=== PATIENT | female | born 1990 | race Caucasian/White ===

== ENCOUNTER 2018-09-19 21:46 | Emergency (ER) | payer OTHER ==
[2018-09-19] MEDS ORDERED: LIDOCAINE 1% INJ 10MG/ML (20 ML MDV) SQ ONE (22:36)
[2018-09-20] MEDS ORDERED: CEPHALEXIN 500 MG CAP PO STA (00:43)
[2018-09-20] MEDS ORDERED: SULFAMETHOX-TMP 800-160MG 1 EACH TAB PO STA (00:43)
[2018-09-20] MEDS ORDERED: IBUPROFEN 600 MG TAB PO STA (00:43)
--- NOTE | 2018-09-20 00:48 | ED ---
General Adult HPI - General Chief complaint: Skin/Abscess/Foreign Body Stated complaint: Boil on Buttox/[facility] Pt Time Seen by Provider: 09/19/18 21:55 Source: patient Mode of arrival: ambulatory Limitations: no limitations - History of Present Illness Initial comments: The patient is a 28-year-old female with past medical history of alcohol abuse who presents to the emergency room from [facility]. She states that over the past several days she has had a boil on her left buttock. She states that it started as a small pimple grew in size. She denies a history of abscess. The nurses at [facility] did place her on Bactrim. She is taking 1 tablet twice daily. She has taken 3 days worth of pills and has not had any improvement in her symptoms. She states she is getting a minimal amount of pustular drainage from the site. No history of MRSA in the past. She denies any changes in her bowel or bladder habits. The abscess does not extend to her rectal canal. She denies the possibility been . She is currently at [facility] for alcohol abuse. There are no other alleviating, precipitating or modifying factors - Related Data Home Medications Medication Instructions Recorded Confirmed Acamprosate Calcium [Campral] 333 mg PO TID 09/19/18 09/19/18 Acetaminophen Tab [Tylenol Tab] 650 mg PO Q4H PRN 09/19/18 09/19/18 Dicyclomine [Bentyl] 20 mg PO TID PRN 09/19/18 09/19/18 Gabapentin [Neurontin] 300 mg PO BID 09/19/18 09/19/18 Ibuprofen [Motrin] 800 mg PO TID PRN 09/19/18 09/19/18 LORazepam [Ativan] 1 mg PO TID PRN 09/19/18 09/19/18 Multivitamins, Thera [Multivitamin 1 tab PO DAILY 09/19/18 09/19/18 (formulary)] Omeprazole [PriLOSEC] 20 mg PO DAILY@1700 09/19/18 09/19/18 Sulfamethoxazole/Trimethoprim 1 tab PO BID 09/19/18 09/19/18 [Bactrim DS 800-160 mg] Previous Rx's Medication Instructions Recorded Cephalexin [Keflex] 500 mg PO Q6HR #40 cap 09/20/18 Sulfamethox-Tmp 800-160Mg [Bactrim 2 each PO Q12HR #28 tab 09/20/18 Ds] Allergies Allergy/AdvReac Type Severity Reaction Status Date / Time No Known Allergies Allergy Verified 09/19/18 22:36 Review of Systems ROS Statement: Those systems with pertinent positive or pertinent negative responses have been documented in the HPI. ROS Other: All systems not noted in ROS Statement are negative. Past Medical History Additional Past Medical History / Comment(s): PAncreatitis Past Surgical History: No Surgical Hx Reported Past Psychological History: Anxiety, Depression Smoking Status: Current every day smoker Past Alcohol Use History: Heavy Past Drug Use History: None Reported General Exam Limitations: no limitations General appearance: alert, in no apparent distress Respiratory exam: Present: normal lung sounds bilaterally Cardiovascular Exam: Present: regular rate, normal rhythm GI/Abdominal exam: Present: soft. Absent: tenderness, guarding, rebound, rigid Rectal exam: Present: normal inspection, other (there is a 4.0 x 3.0 cm abscess on the patients left buttock. Does not extend to rectal canal). Absent: hemo rrhoids, mass, tenderness Skin exam: Present: warm, dry, intact Course Vital Signs 09/19/18 09/20/18 21:50 00:58 Temperature 98.0 F 98.1 F Pulse Rate 91 77 Respiratory 17 18 Rate Blood Pressure 138/88 123/89 O2 Sat by Pulse 100 100 Oximetry Procedures - Incision & Drainage Consent Obtained: verbal consent Indication: abscess Site: buttock Size (cm): 4 (cm) Anesthetic Used: lidocaine 1% Amount (mLs): 10 (cc) I&D Cleaning Method: Chloroprep Sterile Field Used?: Yes Scalpel Used: #11 Needle Aspiration Performed?: No Irrigation Performed?: No I&D Drainage Obtained: Pus, Blood Packing: Iodoform Culture Obtained?: No Patient Tolerated Procedure: well, no complications Medical Decision Making - Medical Decision Making Upon arrival the patient was placed into room 7. I did discuss diagnosis, differential and treatment options. I did recommend I+D of the patient's abscess. Verbal consent was obtained. The procedure was performed and the patient tolerated it well. The abscess was packed. I did inform her that she should remove the packing within 24-48 hours. I did provide the patient with a dose of Bactrim and Keflex in the emergency room. I also gave her 600 mg of Motrin. The patient will be prescribed Keflex to be taken 4 times a day. I also increased the patient's Bactrim dose from 1 tablets to 2 tablets twice daily. The patient needs to have her wound reevaluated by the nursing staff at [facility]. If she has any new or worsening symptoms she is instructed to return to the emergency room as she may need IV antibiotics. The patient understood this. She received written and verbal discharge instructions was discharged in stable condition - Differential Diagnosis acute abscess, acute cellulitis Disposition Clinical Impression: Abscess of buttock Disposition: HOME SELF-CARE Condition: Stable Instructions (If sedation given, give patient instructions): Abscess Incision and Drainage (ED), Abscess (ED) Additional Instructions: Please follow-up with your doctor for further evaluation. Remove the packing in 24-48 hours. If your wound becomes worse, return to the emergency department as you may need IV antibiotics Prescriptions: Sulfamethox-Tmp 800-160Mg [Bactrim Ds] 2 each PO Q12HR #28 tab Cephalexin [Keflex] 500 mg PO Q6HR #40 cap Is patient prescribed a controlled substance at d/c from ED?: No Referrals: Justin Jay DO [Primary Care Provider] - 1-2 days Time of Disposition: 00:47
[2018-09-20 00:59] VITALS: BP 123/89; PULSE 77; RESP 18; TEMP 98.1
== END 2018-09-20 01:08 | disposition home or self-care (01) ==
LOC: EC 21:46
DX: L02.31 Cutaneous abscess of buttock (principal); F10.10 Alcohol abuse, uncomplicated; F41.9 Anxiety disorder, unspecified; F17.200 Nicotine dependence, unspecified, uncomplicated; Z79.899 Other long term (current) drug therapy
CPT/HCPCS: 99283; 10060; J2001